=== PATIENT | female | born 1970 | race Caucasian/White ===

== ENCOUNTER 2017-09-14 14:41 | Outpatient (CLI) | payer OTHER ==
[~2017-09-14 14:41] MED LIST: ASA81 MG; PERCOCET 5/3251 TAB PO; ZANTAC150 MG PO
== END 2017-09-14 14:51 | disposition home or self-care (01) ==
LOC: NUCLEAR 14:41
DX: I82.431 Acute embolism and thrombosis of right popliteal vein (principal)

== ENCOUNTER 2018-11-21 11:04 | Outpatient (CLI) | payer OTHER | END 2018-11-21 11:18 | disposition home or self-care (01) | LOC: NUCLEAR 11:04 | DX: I87.2 Venous insufficiency (chronic) (peripheral) (principal); D68.59 Other primary thrombophilia ==

== ENCOUNTER 2019-07-12 17:48 | Emergency (ER) | payer OTHER ==
[~2019-07-12] VITALS: Ht 149.9 cm; Wt 74.8 kg
[2019-07-12] MEDS ORDERED: DAFLONEX-XL 11300 MG PO (17:59)
[2019-07-12] MEDS ORDERED: FOLBIC TABLET1 EACH (18:00)
[2019-07-12] MEDS ORDERED: FOLBEE TABLET1 EACH (18:00)
== END 2019-07-12 19:29 | disposition home or self-care (01) ==
LOC: ER 17:48
DX: S01.01XA Laceration without foreign body of scalp, initial encounter (principal); S40.012A Contusion of left shoulder, initial encounter; S20.212A Contusion of left front wall of thorax, initial encounter; W18.2XXA Fall in (into) shower or empty bathtub, initial encounter; Y93.89 Activity, other specified; Y92.012 Bathroom of single-family (private) house as the place of occurrence of the external cause; Y99.8 Other external cause status

== ENCOUNTER 2020-04-07 09:23 | Outpatient (CLI) | payer OTHER | END 2020-04-07 09:42 | disposition home or self-care (01) | LOC: NUCLEAR 09:23 | PROVIDERS: ATTEND Internal Medicine Hematology & Oncology | DX: I87.2 Venous insufficiency (chronic) (peripheral) (principal); I82.1 Thrombophlebitis migrans ==

== ENCOUNTER → 2020-04-07 | Outpatient (CLI) | payer OTHER ==
[~2020-04-07] MED LIST changes: +DAFLONEX-XL 11300 MG PO; +FOLBEE TABLET1 EACH; +FOLBIC TABLET1 EACH
== END | disposition home or self-care (01) ==
LOC: MRI 06:43
DX: M50.33 Other cervical disc degeneration, cervicothoracic region (principal); M47.22 Other spondylosis with radiculopathy, cervical region; G45.8 Other transient cerebral ischemic attacks and related syndromes
CPT/HCPCS: 70551; 72141

== ENCOUNTER 2024-03-05 08:06 | Outpatient (CLI) | payer OTHER | END 2024-03-05 08:17 | disposition home or self-care (01) | LOC: TOM 08:06 | PROVIDERS: ATTEND Internal Medicine Hematology & Oncology | DX: R51.9 Headache, unspecified (principal); D68.59 Other primary thrombophilia; I63.9 Cerebral infarction, unspecified ==

== ENCOUNTER 2025-02-06 07:29 | Outpatient (CLI) | payer OTHER | END 2025-02-06 07:39 | disposition home or self-care (01) | LOC: MRI 07:29 → SONOGRAMA 07:29 → MRI 07:39 | PROVIDERS: ATTEND Internal Medicine | DX: M25.511 Pain in right shoulder (principal) | CPT/HCPCS: 73221 ==